=== PATIENT | male | born 1945 | race Caucasian/White ===

== ENCOUNTER 2022-01-22 09:27 | Outpatient (CLI) | payer OTHER | END 2022-01-22 09:32 | disposition home or self-care (01) | LOC: LAB 09:27 | PROVIDERS: ATTEND Internal Medicine Gastroenterology | DX: Z11.52 Encounter for screening for COVID-19 (principal); Z20.828 Contact with and (suspected) exposure to other viral communicable diseases; Z20.822 Contact with and (suspected) exposure to COVID-19 ==